=== PATIENT | female | born 1995 | race Caucasian/White ===

== ENCOUNTER 2016-12-06 22:24 | Emergency (ER) | payer BC, OTHER ==
[~2016-12-06] VITALS: Ht 157.5 cm; Wt 75.0 kg
[2016-12-06 22:26] VITALS: BP 112/60; PULSE 88; RESP 18; TEMP 98; O2SAT 99
--- NOTE | 2016-12-07 01:14 | PD ---
HPI Chief Complaint: Related Problem Time Seen by Provider: 01:01 Travel History International Travel<30 days: No Contact w/Intl Traveler<30days: No Traveled to known affect area: No History of Present Illness HPI 21-year-old at 11 weeks presents with intermittent left lower abdominal pain. Quality is sharp. Severity is currently resolved. She states that she' s having no bleeding or urinary symptoms or other significant complaints other than intermittent discharge. She states she did not have the symptoms with her tonight [id number] child. She states they mainly occur when she is up and moving around. She states she has not had an OB appointment yet but plans to follow with the [facility]. She states she notes that her blood type is positive [facility] Past Medical History Immunizations Current: Yes Tetanus Vaccination: Never Vaccinated Influenza Vaccination: No ?: Past Surgical History Surgical History: No Previous Surgery Social History Alcohol Use: No Tobacco Use: Yes Substance Use: No Allergies-Medications (Allergen,Severity, Reaction): Coded Allergies: No Known Allergies (Unverified , 12/07/16) Reported Meds & Prescriptions Reported Meds & Active Scripts Active Macrobid (Nitrofurantoin Monoh/Nitrofur Macro) 100 Mg Cap 100 Mg PO BID 7 Days Review of Systems Except as stated in HPI: all other systems reviewed are Neg Physical Exam Narrative GENERAL: Well-nourished, well-developed patient. SKIN: Warm and dry. HEAD: Normocephalic and atraumatic. EYES: No injection or drainage. ENT: No nasal drainage noted. NECK: Supple, trachea midline. CARDIOVASCULAR: Regular rate and rhythm RESPIRATORY: No increased effort. No accessory muscle use. GASTROINTESTINAL: Abdomen soft, non-tender, nondistended. NEUROLOGICAL: Awake and alert. Motor and sensory grossly within normal limits. Normal speech. Data Data Last Documented VS Vital Signs Date Time Temp Pulse Resp B/P Pulse Ox O2 Delivery O2 Flow Rate FiO2 12/07/16 01:08 16 12/06/16 22:26 98.0 88 112/60 99 Orders Urinalysis - C+S If Indicated (12/07/16 00:06) Ed Urine Pregnancytest Poc (12/07/16 00:06) Labs Laboratory Tests Test 12/07/16 01:00 Urine Color YELLOW Urine Turbidity HAZY Urine pH 5.5 Urine Specific [place] 1.025 Urine Protein TRACE mg/dL Urine Glucose (UA) NEG mg/dL Urine Ketones NEG mg/dL Urine Occult Blood NEG Urine Nitrite NEG Urine Bilirubin NEG Urine Urobilinogen LESS THAN 2.0 MG/DL Urine Leukocyte Esterase TRACE Urine WBC 4 /hpf Urine Squamous Epithelial 2 /hpf Cells Urine Bacteria OCC /hpf Urine Hyaline Casts 1 /lpf Urine Mucus MANY /lpf Microscopic Urinalysis Comment CULT NOT INDICATED MDM Medical Decision Making Medical Screen Exam Complete: Yes Emergency Medical Condition: Yes Medical Record Reviewed: Yes (past history confirm) Interpretation(s) ua with signs of infection-given will treat Differential Diagnosis Ectopic, cyst, stone, UTI Narrative Course Bedside ultrasound shows IUP with crown rump length near her dates, heart tones visualized, Will check urinalysis Given we'll treat UA and discuss with OB Patient denies any new complaints and states that they are feeling better. Patient happy with care, all questions answered. Patient knows that follow up is incumbent on them and to return to the emergency room immediately if new or worsening symptoms develop. Patient given strict return precautions, vitals reviewed and are normal, agrees to further workup as an outpatient. Procedures Procedure Narrative Emergency Department Pelvic ultrasound was performed with patient consent. The curvilinear probe was used in the transverse and sagittal views within the suprapubic region revealing single intrauterine at first trimester. heart rate was 140. patient shown heart beat Physician Communication Physician Communication dr serna agrees to dc Diagnosis Primary Impression: Abdominal pain during Qualified Code: O26.891 - Abdominal pain during , first trimester Patient Instructions: General Instructions Additional Instructions: return as needed, tylenol as needed, follow with your ob on thursday Med/Other Pt SpecificInfo: Prescription(s) given Scripts Nitrofurantoin Monohydrate Macrocrystals (Macrobid)100 Mg [id number] Mg PO BID 7 Days Prov:Freda Tim MD 12/07/16 Disposition: DISCHARGE HOME Condition: Stable Freda Tim MD Dec 07, 2016 01:14
[2016-12-07 01:24] LABS: BACTERIA, URINE OCC /hpf; BLOOD, URINE NEG (NEG); COMMENT (UR) CULT NOT INDICATED; CULTURE IF INDICATED CULT NOT INDICATED; GLUCOSE,URINE NEG (NEG); HYALINE CAST, URINE 1 /lpf (RARE); KETONE, URINE NEG (NEG); MUCUS URINE MANY /lpf (OCC); NITRITE,URINE NEG (NEG); PH, URINE 5.5 (5.0-8.5); SQUAMOUS EPITHELIAL CELL URINE 2 /hpf (0-5); URINE COLOR YELLOW (YELLW/STRAW)
[2016-12-07] MEDS ORDERED: MACR100C2 PO (01:57)
== END 2016-12-07 02:35 | disposition home or self-care (01) ==
LOC: NEPE 22:24
DX: O26.891 Other specified pregnancy related conditions, first trimester (principal); R10.30 Lower abdominal pain, unspecified; Z3A.11 11 weeks gestation of pregnancy
CPT/HCPCS: 81001; 84703; 99284

== ENCOUNTER → 2017-03-17 | Outpatient (CLI) | payer BC, MEDICAID ==
[~2017-03-17] MED LIST: MACR100C2 PO
== END ==
LOC: HPND 09:01
PROVIDERS: ATTEND Obstetrics & Gynecology
DX: O44.02 Complete placenta previa NOS or without hemorrhage, second trimester (principal); O35.8XX0 Maternal care for other (suspected) fetal abnormality and damage, not applicable or unspecified; Z3A.22 22 weeks gestation of pregnancy
CPT/HCPCS: 76811

== ENCOUNTER → 2017-04-15 | Outpatient (CLI) | payer BC, MEDICAID | LOC: HPND 08:44 | PROVIDERS: ATTEND Obstetrics & Gynecology | DX: O44.42 Low lying placenta NOS or without hemorrhage, second trimester (principal); O35.8XX0 Maternal care for other (suspected) fetal abnormality and damage, not applicable or unspecified; Z3A.26 26 weeks gestation of pregnancy | CPT/HCPCS: 76816; 76825; 76827; 93325 ==